=== PATIENT | female | born 1970 | race Caucasian/White ===

== ENCOUNTER 2019-07-03 14:31 | Emergency (ER) | payer BC ==
[2019-07-03 14:54] VITALS: BP 171/105
--- NOTE | 2019-07-03 15:25 | UC ---
Throat Pain/Nasal Eben HPI - HPI Summary HPI Summary: The patient is a 49-year-old female who states that today while swallowing she noticed a lump like sensation in her lower left anterior neck. It causes no pain. She denies any trouble swallowing. She has no sore throat. She denies any fever or chills. She denies any headache or muscle aches. She denies any chest pain or shortness of breath. She denies any changes in her weight. She denies noticing any other abnormal areas of swelling. She has no primary care provider and has not seeked medical attention for years. - History of Current Complaint Chief Complaint: UCGeneralIllness Stated Complaint: NECK SWELLING Time Seen by Provider: 07/03/19 15:11 Hx Obtained From: Patient Onset/Duration: Sudden Onset, Lasting Hours Pain Intensity: 0 Pain Scale Used: 0-10 Numeric Cough: None Associated Signs & Symptoms: Negative: Dysphagia, FB Sensation, Drooling, Wheezing, Hoarseness, Sinus Discomfort, Nasal Discharge, Fever, Vomiting, Rash - Epiglottits Risk Factors Epiglottis Risk Factors: Negative - Allergies/Home Medications Allergies/Adverse Reactions: Allergies Allergy/AdvReac Type Severity Reaction Status Date / Time No Known Allergies Allergy Verified 07/03/19 14:54 Home Medications: Home Medications NK [No Home Medications Reported] 07/03/19 [History Confirmed 07/03/19] PMH/Surg Hx/FS Hx/Imm Hx Previously Healthy: Yes - Surgical History Surgical History: None - Family History Known Family History: Positive: Cardiac Disease, Other - no thyroid issues Negative: Hypertension, Diabetes - Social History Alcohol Use: None Substance Use Type: None Smoking Status (MU): Never Smoked Tobacco Review of Systems All Other Systems Reviewed And Are Negative: Yes Constitutional: Positive: Negative Skin: Positive: Negative Eyes: Positive: Negative ENT: Positive: Negative Respiratory: Positive: Negative Cardiovascular: Positive: Negative Gastrointestinal: Positive: Negative Genitourinary: Positive: Negative Motor: Positive: Negative Neurovascular: Positive: Negative Musculoskeletal: Positive: Negative Neurological: Positive: Negative Psychological: Positive: Negative Physical Exam Triage Information Reviewed: Yes Appearance: Well-Appearing, No Pain Distress, Well-Nourished Vital Signs: Initial Vital Signs Temp 98.3 F 07/03/19 14:49 Pulse 90 07/03/19 14:49 Resp 18 07/03/19 14:49 BP 171/105 07/03/19 14:49 Pulse Ox 100 07/03/19 14:49 Vital Signs Reviewed: Yes Eyes: Positive: Conjunctiva Clear ENT: Positive: Hearing grossly normal, Pharynx normal, TMs normal, Uvula midline. Negative: Nasal congestion, Nasal drainage, Tonsillar swelling, Tonsillar exudate, Trismus, Muffled voice, Hoarse voice Dental Exam: Normal Neck: Positive: Supple, Nontender, No Lymphadenopathy, Other: - no thyromegaly or thyroid mass noted Respiratory: Positive: Lungs clear, Normal breath sounds, No respiratory distress, No accessory muscle use Cardiovascular: Positive: RRR, No Murmur Musculoskeletal: Positive: ROM Intact, No Edema Neurological: Positive: Alert Psychological Exam: Normal Skin Exam: Normal Throat Pain/Nasal Course/Dx - Differential Dx/Diagnosis Provider Diagnosis: Swelling, mass, or lump in head and neck, Elevated BP without diagnosis of hypertension Discharge ED - Sign-Out/Discharge Documenting (check all that apply): Patient Departure All imaging exams completed and their final reports reviewed: No Studies - Discharge Plan Condition: Stable Disposition: HOME Patient Education Materials: Hypertension (ED) Referrals: [facility] [Outside] - As Soon As Possible (ASK FOR FIRST AVAILABLE APPT for recheck BP and follow up of lab work ) [facility] [place] [facility] [place] [facility] [place]Outside] - As Soon As Possible (CALL TO FIND A PRIMARY CARE PROVIDER) Additional Instructions: Your BP is elevated and you need to find a primary care provider to follow up with If your BP remains elevated you will need to start medications for it I am unsure what is causing the sensation in your left lower neck when you swallow RECHECK FOR FEVER OR PAIN OR TROUBLE SWALLOWING blood work is pending including a test for your thyroid gland this complaint needs further evaluation - Billing Disposition and Condition Condition: STABLE Disposition: Home
== END 2019-07-03 15:57 | disposition home or self-care (01) ==
LOC: UCEAST 14:31
DX: R22.1 Localized swelling, mass and lump, neck (principal); R03.0 Elevated blood-pressure reading, without diagnosis of hypertension; R22.0 Localized swelling, mass and lump, head
CPT/HCPCS: 99201; G0463